=== PATIENT | male | born 1945 | race Caucasian/White ===

== ENCOUNTER → 2016-09-14 | Outpatient (CLI) | payer MEDICARE, BC ==
[~2016-09-14] MED LIST: ATOR40TA PO; DIGO250T86 PO; ERGO500017 PO; FURO20TA3 PO; INSU100I13 SC; LISI40TA PO; METF10002 PO; RIVA20TA PO; TEST75GE TD; TIOT4MIS3 INH; metoprolol PO; pioglitazone PO
[2016-09-14 12:37] LABS: ASPARTATE AMINO TRANSFERASE 11 U/L (15-37); BLOOD UREA NITROGEN 37 mg/dL (7-18)
[2016-09-15 14:07] LABS: THYROGLOBULIN AB <1.0 IU/mL (0.0-0.9)
== END | disposition home or self-care (01) ==
LOC: STAR 10:54
PROVIDERS: ATTEND Surgery
DX: Z01.818 Encounter for other preprocedural examination (principal); R94.31 Abnormal electrocardiogram [ECG] [EKG]
CPT/HCPCS: 36415; 71020; 80053; 84432; 85025; 86800; 93005

== ENCOUNTER 2016-09-26 06:05 | Observation (INO) | payer MEDICARE, BC ==
[~2016-09-26] VITALS: Ht 185.4 cm; Wt 127.2 kg
[~2016-09-26 06:05] MED LIST changes: +CEFAZOLIN 1,000 MG ONE; +DEXAMETHASONE 4 MG/ML, 1ML ONE; +ONDANSETRON 2MG/ML, 2ML ONE; +PROPOFOL 10 MG/ML, 20ML ONE; +SUCCINYLCHOLINE 20 MG/ML, 10ML ONE
[2016-09-26] MEDS ORDERED: LIDOCAINE 1%, 2ML ONE ×2 (06:33→06:35)
[2016-09-26] MEDS ORDERED: GABAPENTIN 300 MG CAPSULE ONE (06:35)
[2016-09-26] MEDS ORDERED: LACTATED RINGERS 1,000 ML IV SCH (06:39)
[2016-09-26] MEDS ORDERED: METO-93 PO (06:48)
[2016-09-26] MEDS ORDERED: PIOG30TA4 PO (06:48)
[2016-09-26 06:56] VITALS: BP 106/58
[2016-09-26] MEDS ORDERED: MIDAZOLAM 1 MG/ML, 2ML ONE (06:59)
[2016-09-26] MEDS: INSULIN REGULAR 100 UNITS/ML, 3ML VIAL SQ-INSULIN SCH ×4 (07:00→21:49)
[2016-09-26] MEDS ORDERED: ONDANSETRON 2MG/ML, 2ML IVPush PRN ×2 (07:00→08:30)
[2016-09-26] MEDS ORDERED: HYDROmorphone 1 MG/ML, 1ML IV PRN (07:00)
[2016-09-26] MEDS ORDERED: LIDOCAINE 1%, 2ML SQ PRN (07:00)
[2016-09-26] MEDS ORDERED: FENTANYL PF 250 MCG/5ML ONE ×2 (07:00→08:38)
[2016-09-26] MEDS ORDERED: OXYcodone/APAP 5/325MG TABLET PO PRN (07:00)
[2016-09-26] MEDS ORDERED: GABAPENTIN 300 MG CAPSULE PO SCH (07:00)
[2016-09-26] MEDS ORDERED: SUCCINYLCHOLINE 20 MG/ML, 10ML ONE (07:21)
[2016-09-26] MEDS ORDERED: PROPOFOL 10 MG/ML, 20ML ONE (07:21)
[2016-09-26] MEDS ORDERED: CEFAZOLIN 1,000 MG ONE (07:21)
[2016-09-26] MEDS ORDERED: DEXAMETHASONE 4 MG/ML, 1ML ONE (07:21)
[2016-09-26] MEDS ORDERED: ONDANSETRON 2MG/ML, 2ML ONE (07:21)
[2016-09-26] MEDS ORDERED: MIDAZOLAM 1 MG/ML, 2ML IV PRN (08:30)
[2016-09-26] MEDS ORDERED: OXYcodone 5 MG/5 ML ORAL.SOL UDC PO PRN (08:30)
[2016-09-26] MEDS ORDERED: hydrALAzine 20 MG/ML, 1ML IV PRN (08:30)
[2016-09-26] MEDS ORDERED: FENTANYL PF 100 MCG/2ML IV PRN (08:30)
[2016-09-26] MEDS ORDERED: METOPROLOL 1 MG/ML, 5ML IV PRN (08:30)
[2016-09-26] MEDS ORDERED: ALBUTEROL/IPRATROPIUM 2.5MG/0.5MG, 3 ML NPPB PRN (08:30)
[2016-09-26] MEDS ORDERED: PROMETHAZINE 25 MG/ML, 1ML IV PRN (08:30)
[2016-09-26] MEDS ORDERED: HYDROmorphone 1 MG/ML, 1ML ONE (09:05)
[2016-09-26] MEDS ORDERED: FENTANYL PF 100 MCG/2ML ONE (09:05)
[2016-09-26] MEDS: HYDROmorphone 1 MG/ML, 1ML IV PRN ×3 (09:50→10:05)
[2016-09-26] MEDS: TIOTROPIUM BR INH SCH (11:48)
[2016-09-26] MEDS: OLODATEROL HCL INH SCH (11:48)
[2016-09-26] MEDS: metFORMIN 500 MG TABLET PO SCH ×2 (11:49→17:06)
[2016-09-26] MEDS: FUROSEMIDE 20 MG TABLET PO SCH (11:49)
[2016-09-26] MEDS: PIOGLITAZONE 15 MG TABLET PO SCH (11:49)
[2016-09-26] MEDS: DIGOXIN 0.25 MG TABLET PO SCH (11:49)
[2016-09-26] MEDS: METOPROLOL SUCCINATE 50 MG TAB.ER.24H PO SCH (11:50)
[2016-09-26] MEDS: LISINOPRIL 20 MG TABLET PO SCH (11:50)
[2016-09-26 16:15] VITALS: BP 128/68
[2016-09-26] MEDS: POTASSIUM CHLORIDE 20 MEQ in LACTATED RINGERS 1,000 ML IV SCH ×2 (16:21→23:22)
[2016-09-26 20:19] VITALS: BP 128/75
[2016-09-26] MEDS ORDERED: ATORVASTATIN 40 MG TABLET PO SCH (21:00)
[2016-09-26] MEDS ORDERED: LEVO150T PO (23:03)
[2016-09-26] MEDS ORDERED: OXYC-302 PO (23:06)
[2016-09-27 00:14] VITALS: BP 126/70
[2016-09-27] MEDS: POTASSIUM CHLORIDE 20 MEQ in LACTATED RINGERS 1,000 ML IV SCH (07:10)
[2016-09-27] MEDS: INSULIN REGULAR 100 UNITS/ML, 3ML VIAL SQ-INSULIN SCH ×2 (08:20→12:04)
[2016-09-27] MEDS: metFORMIN 500 MG TABLET PO SCH (08:21)
[2016-09-27] MEDS: TIOTROPIUM BR INH SCH (09:00)
[2016-09-27] MEDS: OLODATEROL HCL INH SCH (09:00)
[2016-09-27 09:27] VITALS: BP 135/74
[2016-09-27] MEDS: DIGOXIN 0.25 MG TABLET PO SCH (09:39)
[2016-09-27] MEDS: PIOGLITAZONE 15 MG TABLET PO SCH (09:39)
[2016-09-27] MEDS: FUROSEMIDE 20 MG TABLET PO SCH (09:39)
[2016-09-27] MEDS: LISINOPRIL 20 MG TABLET PO SCH (09:40)
[2016-09-27] MEDS: METOPROLOL SUCCINATE 50 MG TAB.ER.24H PO SCH (09:40)
[2016-09-27 14:27] VITALS: BP 143/68
== END 2016-09-27 15:54 | disposition home or self-care (01) ==
LOC: OUT 06:05 → ORIP 07:00 → 4NOR 10:28 → DCLOUNGE 09-27 15:07
PROVIDERS: ADMIT Surgery; ATTEND Surgery
DX: E04.2 Nontoxic multinodular goiter (principal); E06.3 Autoimmune thyroiditis; I48.91 Unspecified atrial fibrillation; D68.318 Other hemorrhagic disorder due to intrinsic circulating anticoagulants, antibodies, or inhibitors; I25.10 Atherosclerotic heart disease of native coronary artery without angina pectoris; J44.9 Chronic obstructive pulmonary disease, unspecified; E66.9 Obesity, unspecified; E11.9 Type 2 diabetes mellitus without complications; I10 Essential (primary) hypertension; R09.02 Hypoxemia; G47.30 Sleep apnea, unspecified; Z95.0 Presence of cardiac pacemaker; Z90.49 Acquired absence of other specified parts of digestive tract
CPT/HCPCS: 36415; 60271; 82040; 82310; 82962; 88307; 96372; C1729; C1760; G0378; J0330; J0690; J1100; J1170; J1815; J2250; J2405; J2704; J3010; J3480; J3490; J7120

== ENCOUNTER → 2020-02-18 | Outpatient (CLI) | payer MEDICARE, BC ==
[~2020-02-18] MED LIST changes: -CEFAZOLIN 1,000 MG ONE; +CEFD300C37 PO; +DAPA1TAB5 PO; -DEXAMETHASONE 4 MG/ML, 1ML ONE; +DIGO125T85 PO; +DUTA0.5C PO; +FURO-92 PO; +GUAI600T31 PO; +INSU100I18 INJ; +INSU100V35 INJ; +LEVO150T PO; +LEVO175T2 PO; +METO-93 PO; -ONDANSETRON 2MG/ML, 2ML ONE; +OXYC-302 PO; +PIOG30TA68 PO; -PROPOFOL 10 MG/ML, 20ML ONE; +SEMA0.25 INJ; +SEMA1PEN INJ; -SUCCINYLCHOLINE 20 MG/ML, 10ML ONE; +TAMS-11 PO; +TIOT4MIS5 INH
[2020-02-18 13:24] LABS: BASOPHILS % (AUTO) 1 % (0-1); EOSINOPHILS % (AUTO) 3 % (1-7); LYMPHOCYTES % (AUTO) 17 % (22-44); MEAN CORPUSCULAR HEMOGLOBIN 29.8 pg (27.5-34.5); MEAN CORPUSCULAR HGB CONC 32.6 g/dL (33.2-36.2); MEAN PLATELET VOLUME 8.1 fL (7.4-10.4); MONOCYTES % (AUTO) 9 % (2-9); NEUTROPHILS % (AUTO) 71 % (42-75); PLATELET COUNT 322 x10^3/uL (130-400); RED BLOOD COUNT 5.36 x10^6/uL (4.38-5.82); RED CELL DISTRIBUTION WIDTH 16.3 % (9.4-14.8)
[2020-02-18 13:26] LABS: MD NO
[2020-02-18 13:31] LABS: INTERNATIONAL NORMALIZED RATIO 1.12 (0.93-1.1); PROTHROMBIN TIME 11.9 Seconds (9.6-11.5)
[2020-02-18 13:34] LABS: ALANINE AMINOTRANSFERASE 23 U/L (12-78); ALBUMIN 3.7 g/dL (3.4-5.0); ANION GAP 9 mmol/L (5-15); CALCIUM 9.2 mg/dL (8.5-10.1); CHLORIDE 100 mmol/L (98-107); CREATININE 1.25 mg/dL (0.7-1.3)
[2020-02-18 13:36] LABS: ALKALINE PHOSPHATASE 40 U/L (45-117); BILIRUBIN,TOTAL 0.5 mg/dL (0.2-1.0); MICROSCOPIC NOT IND; TOTAL PROTEIN 8.3 g/dL (6.4-8.2)
== END | disposition home or self-care (01) ==
LOC: STAR 11:44
PROVIDERS: ATTEND Urology
DX: Z01.818 Encounter for other preprocedural examination (principal); N40.1 Benign prostatic hyperplasia with lower urinary tract symptoms; I44.30 Unspecified atrioventricular block; I48.92 Unspecified atrial flutter; I45.10 Unspecified right bundle-branch block
CPT/HCPCS: 36415; 71046; 80053; 81003; 85025; 85610; 87086; 93005

== ENCOUNTER 2020-02-24 07:00 | Day surgery (SDC) | payer MEDICARE, BC ==
[~2020-02-24] VITALS: Ht 182.9 cm; Wt 107.0 kg
[2020-02-24 06:23] VITALS: BP 125/75
[~2020-02-24 07:00] MED LIST changes: +CHLORHEXIDINE 15 ML UDC MM ONE; +CHLORHEXIDINE 15 ML UDC ONE; +FENTANYL PF 100 MCG/2ML IV PRN; +FENTANYL PF 100 MCG/2ML ONE; +HYDROcodone/APAP 7.5-325MG/15ML UDC PO PRN; +HYDROmorphone 1 MG/ML, 1ML INJ IVPush PRN; +LACTATED RINGERS 1,000 ML IV SCH; +MEPERIDINE/PF 25MG/0.5ML IVPush PRN; +MIDAZOLAM 1 MG/ML, 2ML ONE; +OXYcodone 5 MG/5 ML ORAL.SOL UDC PO PRN; +PROMETHAZINE 25 MG/ML, 1ML IVPush PRN
[2020-02-24] MEDS ORDERED: ONDANSETRON 2MG/ML, 2ML ONE (07:29)
[2020-02-24] MEDS ORDERED: DEXAMETHASONE 4 MG/ML, 1ML ONE (07:29)
[2020-02-24] MEDS ORDERED: LIDOCAINE PF 2%, 5ML ONE (07:29)
[2020-02-24] MEDS ORDERED: CEFAZOLIN 1,000 MG ONE (07:29)
[2020-02-24] MEDS ORDERED: PROPOFOL 10 MG/ML, 20ML ONE (07:29)
[2020-02-24] MEDS ORDERED: DEXTROSE 50%, 50ML SYRINGE IVPush ONE (08:30)
[2020-02-24] MEDS ORDERED: HYDROcodone/APAP 5/325 TABLET ONE (10:34)
== END 2020-02-24 10:50 | disposition home or self-care (01) ==
LOC: OUT 07:00
PROVIDERS: ATTEND Urology
DX: N40.1 Benign prostatic hyperplasia with lower urinary tract symptoms (principal); N39.41 Urge incontinence; R35.0 Frequency of micturition; R35.1 Nocturia; E29.1 Testicular hypofunction; N43.3 Hydrocele, unspecified; K40.20 Bilateral inguinal hernia, without obstruction or gangrene, not specified as recurrent; I48.92 Unspecified atrial flutter; I10 Essential (primary) hypertension; E11.9 Type 2 diabetes mellitus without complications; J44.9 Chronic obstructive pulmonary disease, unspecified; G47.33 Obstructive sleep apnea (adult) (pediatric); Z20.828 Contact with and (suspected) exposure to other viral communicable diseases; Z79.01 Long term (current) use of anticoagulants; Z79.4 Long term (current) use of insulin; Z79.890 Hormone replacement therapy; Z79.899 Other long term (current) drug therapy; Z91.048 Other nonmedicinal substance allergy status; Z99.81 Dependence on supplemental oxygen
CPT/HCPCS: 52601; 82962; 87635; 88305; J0690; J1100; J2250; J2405; J2704; J3010; J7120

== ENCOUNTER 2020-02-24 22:28 | Emergency (ER) | payer MEDICARE, BC ==
[~2020-02-24] VITALS: Ht 182.9 cm; Wt 110.3 kg
[~2020-02-24 22:28] MED LIST changes: -CHLORHEXIDINE 15 ML UDC MM ONE; -CHLORHEXIDINE 15 ML UDC ONE; -FENTANYL PF 100 MCG/2ML IV PRN; -FENTANYL PF 100 MCG/2ML ONE; -HYDROcodone/APAP 7.5-325MG/15ML UDC PO PRN; -HYDROmorphone 1 MG/ML, 1ML INJ IVPush PRN; -LACTATED RINGERS 1,000 ML IV SCH; -MEPERIDINE/PF 25MG/0.5ML IVPush PRN; -MIDAZOLAM 1 MG/ML, 2ML ONE; -OXYcodone 5 MG/5 ML ORAL.SOL UDC PO PRN; -PROMETHAZINE 25 MG/ML, 1ML IVPush PRN
[2020-02-24 22:56] VITALS: BP 116/70
--- NOTE | 2020-02-24 22:56 | NUR ---
pt walked to room
--- NOTE | 2020-02-24 22:56 | NUR ---
pt calm and sitting in chair, refused to put gown on, stated "I'm just here for someone to look at my bag and tell me if it's too much blood", Pt's vital signs taken, remains calm, no pain stated. greene bag and greene catheter in place. bag is about 400ml full with blood tinged urine. pink in color
[2020-02-24 23:18] LABS: BASOPHILS % (AUTO) 0 % (0-1); EOSINOPHILS % (AUTO) 0 % (1-7); LYMPHOCYTES % (AUTO) 7 % (22-44); MEAN CORPUSCULAR HEMOGLOBIN 30.3 pg (27.5-34.5); MEAN CORPUSCULAR HGB CONC 33.3 g/dL (33.2-36.2); MEAN PLATELET VOLUME 8.2 fL (7.4-10.4); MONOCYTES % (AUTO) 8 % (2-9); NEUTROPHILS % (AUTO) 84 % (42-75); PLATELET COUNT 310 x10^3/uL (130-400); RED BLOOD COUNT 4.91 x10^6/uL (4.38-5.82); RED CELL DISTRIBUTION WIDTH 16.2 % (9.4-14.8)
[2020-02-24 23:23] LABS: MD NO
[2020-02-24 23:29] LABS: ALBUMIN 3.1 g/dL (3.4-5.0); ANION GAP 8 mmol/L (5-15); CALCIUM 8.3 mg/dL (8.5-10.1); CHLORIDE 100 mmol/L (98-107); CREATININE 1.58 mg/dL (0.7-1.3)
== END 2020-02-25 00:06 | disposition home or self-care (01) ==
LOC: ED 23:14
DX: R31.0 Gross hematuria (principal); N28.9 Disorder of kidney and ureter, unspecified; E11.65 Type 2 diabetes mellitus with hyperglycemia; E78.00 Pure hypercholesterolemia, unspecified; I10 Essential (primary) hypertension; Z95.0 Presence of cardiac pacemaker
CPT/HCPCS: 36415; 80048; 82040; 85025; 99283

== ENCOUNTER 2020-10-10 15:08 | Inpatient (IN) | payer MEDICARE, BC ==
[~2020-10-10] VITALS: Ht 185.4 cm; Wt 117.4 kg
[~2020-10-10 15:08] MED LIST changes: -LISI40TA PO; +LISI40TA9 PO; -OXYC-302 PO; +OXYC1TAB14 PO
--- NOTE | 2020-10-10 15:15 | NUR ---
RECEIVED REPORT FROM WAI CALIXTO
--- NOTE | 2020-10-10 15:19 | NUR ---
PATIENT BIB EMS WITH CHIEF C/O SEIZURE. PER EMS WOKE UP TO PATIENT HAVING A SEIZURE, REPORTED SEIZURE LASTED 3-5 MINUTES. PATIENT HAS NO HX OF SEIZURES. PATIENT GIVEN 1500 MG KEPPRA AT [facility] ED, NO OTHER SEIZURES NOTED. PER EMS PATIENT HAD EPISODE OF INCONTINENCE AT [facility], BRIEF PLACED ON PATIENT. PATIENT PLACED ON 2 LPM NC DUE TO O2 SATURATION IN THE MID TO HIGH 80'S. 20 GAUGE IV STARTED PRIOR TO ARRIVAL. PATIENT DROWSY UPON ASSESSMENT BUT A&OX4, PLACED ON 2 LPM NC SATURATION AT 94-95%, OTHER VSS, NADN, SEIZURE PRECAUTIONS IN PLACE, CALL LIGHT WITHIN REACH.
--- NOTE | 2020-10-10 15:25 | NUR ---
REPORT TO MARILY VILLEGAS FOR TRANSFER OF PATIENT CARE.
--- NOTE | 2020-10-10 16:02 | NUR ---
PT LAYING ON GURNEY SLEEPING COMFORTABLY, NAD/VSS, NO NEEDS AT THIS TIME, CALL LIGHT WITHIN REACH, SEIZ PREC REMAIN IN PLACE.
[2020-10-10 16:29] LABS: BASOPHILS % (AUTO) 0 % (0-1); EOSINOPHILS % (AUTO) 0 % (1-7); LYMPHOCYTES % (AUTO) 8 % (22-44); MEAN CORPUSCULAR HEMOGLOBIN 31.1 pg (27.5-34.5); MEAN CORPUSCULAR HGB CONC 33.1 g/dL (33.2-36.2); MEAN PLATELET VOLUME 8.4 fL (7.4-10.4); MONOCYTES % (AUTO) 8 % (2-9); NEUTROPHILS % (AUTO) 84 % (42-75); PLATELET COUNT 237 x10^3/uL (130-400); RED BLOOD COUNT 5.24 x10^6/uL (4.38-5.82); RED CELL DISTRIBUTION WIDTH 15.2 % (9.4-14.8)
[2020-10-10] MEDS ORDERED: ACETAMINOPHEN 325 MG TABLET PO PRN (16:30)
[2020-10-10] MEDS ORDERED: ONDANSETRON ODT 4 MG PO PRN (16:30)
[2020-10-10] MEDS ORDERED: LORazepam 2 MG/ML, 1ML IVPush PRN (16:30)
[2020-10-10] MEDS ORDERED: ONDANSETRON 2MG/ML, 2ML IVPush PRN (16:30)
[2020-10-10 16:40] LABS: ANION GAP 5 mmol/L (5-15); CALCIUM 8.6 mg/dL (8.5-10.1); CHLORIDE 107 mmol/L (98-107); CREATININE 0.91 mg/dL (0.7-1.3)
--- NOTE | 2020-10-10 17:04 | NUR ---
PT CONTINUES MOSTLY SLEEPING ON GURNEY, AWAKENS/RESPONDS APPROP TO STAFF, NAD, COMFORT MEASURES PROVIDED, CALL LIGHT WITHIN REACH, AT BS, SEIZ PREC REMAIN IN PLACE.
--- NOTE | 2020-10-10 17:38 | NUR ---
TP RN NOTE: REPORT CALLED TO RECEIVING MARILY GROSSMAN PT AWAITING TRANSPORT TO MEDICAL TELEMETRY.
[2020-10-10] MEDS ORDERED: CARVEDILOL 3.125 MG TABLET PO SCH (18:00)
--- NOTE | 2020-10-10 18:03 | NUR ---
PT MOSTLY SLEEPING ON GURNEY BUT AWAKENS/RESPONDS APPROP TO STAFF, NAD, NO NEEDS AT THIS TIME, CALL LIGHT WITHIN REACH, AT BS, SEIZ PREC REMAIN IN PLACE. AWAITING TRANSPORT TO FLOOR.
--- NOTE | 2020-10-10 19:00 | NUR ---
PT RESTING ON GURNEY WITH EYES CLOSED, AWAKENS/RESPONDS APPROP TO STAFF, NAD, NO NEEDS AT THIS TIME, CALL LIGHT WITHIN REACH, AT BS, SEIZ PREC REMAIN IN PLACE.
[2020-10-10 19:58] VITALS: BP 108/58
[2020-10-10] MEDS: DAPAGLIFLOZIN PO SCH (21:00)
[2020-10-10] MEDS: METFORMIN HCL PO SCH (21:00)
[2020-10-10] MEDS: INSULIN LISPRO 100 UNITS/ML, PEN SQ-INSULIN SCH (21:00)
[2020-10-10] MEDS: ATORVASTATIN 40 MG TABLET PO SCH (21:22)
[2020-10-10] MEDS: CARVEDILOL 3.125 MG TABLET PO SCH (21:22)
[2020-10-11 01:32] VITALS: BP 123/71
[2020-10-11 05:06] LABS: BASOPHILS % (AUTO) 1 % (0-1); EOSINOPHILS % (AUTO) 1 % (1-7); LYMPHOCYTES % (AUTO) 20 % (22-44); MEAN CORPUSCULAR HEMOGLOBIN 31.4 pg (27.5-34.5); MEAN CORPUSCULAR HGB CONC 33.8 g/dL (33.2-36.2); MEAN PLATELET VOLUME 8.4 fL (7.4-10.4); MONOCYTES % (AUTO) 11 % (2-9); NEUTROPHILS % (AUTO) 68 % (42-75); PLATELET COUNT 224 x10^3/uL (130-400); RED BLOOD COUNT 4.83 x10^6/uL (4.38-5.82); RED CELL DISTRIBUTION WIDTH 15.5 % (9.4-14.8)
[2020-10-11 05:11] LABS: ANION GAP 3 mmol/L (5-15); CALCIUM 8.4 mg/dL (8.5-10.1); CHLORIDE 109 mmol/L (98-107); CREATININE 0.91 mg/dL (0.7-1.3)
[2020-10-11] MEDS: LEVOTHYROXINE 175 MCG TABLET PO SCH (06:04)
[2020-10-11 06:53] VITALS: BP 126/80
[2020-10-11] MEDS: INSULIN LISPRO 100 UNITS/ML, PEN SQ-INSULIN SCH ×4 (07:00→20:23)
[2020-10-11] MEDS ORDERED: POTASSIUM CHLORIDE 20 MEQ TAB.ER.PRT PO ONE (08:00)
[2020-10-11] MEDS: DIGOXIN 0.125 MG TABLET PO SCH (09:50)
[2020-10-11] MEDS: RIVAROXABAN 20 MG TABLET PO SCH (09:50)
[2020-10-11] MEDS: TAMSULOSIN 0.4 MG CAP.ER.24H PO SCH (09:51)
[2020-10-11] MEDS: PIOGLITAZONE 15 MG TABLET PO SCH (09:51)
[2020-10-11] MEDS: CARVEDILOL 3.125 MG TABLET PO SCH ×2 (09:51→20:21)
[2020-10-11] MEDS: METFORMIN HCL PO SCH (11:00)
[2020-10-11] MEDS: TIOTROPIUM BROMIDE INH SCH (11:00)
[2020-10-11] MEDS: DAPAGLIFLOZIN PO SCH (11:00)
[2020-10-11] MEDS: DUTASTERIDE 0.5 MG CAPSULE PO SCH (12:15)
[2020-10-11 14:24] VITALS: BP 119/71
[2020-10-11 18:40] VITALS: BP 126/79
[2020-10-11] MEDS: ATORVASTATIN 40 MG TABLET PO SCH (20:21)
[2020-10-11] MEDS ORDERED: IPRATROPIUM 0.5 MG/2.5 ML INHA ONE (20:44)
[2020-10-11] MEDS ORDERED: METFORMIN HOMEMEDPO ONE (21:00)
[2020-10-11] MEDS ORDERED: DAPAGLIFLOZIN HOMEMEDPO ONE (21:00)
[2020-10-12 01:52] VITALS: BP 119/72
[2020-10-12 05:48] LABS: BASOPHILS % (AUTO) 1 % (0-1); EOSINOPHILS % (AUTO) 3 % (1-7); LYMPHOCYTES % (AUTO) 26 % (22-44); MEAN CORPUSCULAR HGB CONC 33.2 g/dL (33.2-36.2); MEAN PLATELET VOLUME 8.2 fL (7.4-10.4); MONOCYTES % (AUTO) 11 % (2-9); NEUTROPHILS % (AUTO) 61 % (42-75); PLATELET COUNT 212 x10^3/uL (130-400); RED BLOOD COUNT 4.99 x10^6/uL (4.38-5.82); RED CELL DISTRIBUTION WIDTH 15.5 % (9.4-14.8)
[2020-10-12 05:56] LABS: CALCIUM 8.8 mg/dL (8.5-10.1)
[2020-10-12 06:19] LABS: ANION GAP 5 mmol/L (5-15)
[2020-10-12 06:20] LABS: CHLORIDE 109 mmol/L (98-107)
[2020-10-12] MEDS: LEVOTHYROXINE 175 MCG TABLET PO SCH (06:21)
[2020-10-12 07:30] VITALS: BP 139/88
[2020-10-12] MEDS: INSULIN LISPRO 100 UNITS/ML, PEN SQ-INSULIN SCH ×4 (07:48→19:39)
[2020-10-12] MEDS: TIOTROPIUM BROMIDE INH SCH (08:26)
[2020-10-12] MEDS: PIOGLITAZONE 15 MG TABLET PO SCH (08:35)
[2020-10-12] MEDS: TAMSULOSIN 0.4 MG CAP.ER.24H PO SCH (08:35)
[2020-10-12] MEDS: DIGOXIN 0.125 MG TABLET PO SCH (08:35)
[2020-10-12] MEDS: RIVAROXABAN 20 MG TABLET PO SCH (08:36)
[2020-10-12] MEDS: CARVEDILOL 3.125 MG TABLET PO SCH ×2 (08:40→20:59)
[2020-10-12] MEDS: DUTASTERIDE 0.5 MG CAPSULE PO SCH (10:06)
[2020-10-12] MEDS: IPRATROPIUM 0.5 MG/2.5 ML INHA NPPB SCH ×3 (10:55→21:30)
[2020-10-12 12:40] VITALS: BP 128/82
[2020-10-12] MEDS ORDERED: INSU100I11 SQ-INSULIN (13:04)
[2020-10-12] MEDS ORDERED: CARV3.1212 PO (13:04)
[2020-10-12 19:20] VITALS: BP 118/71
[2020-10-12] MEDS: ATORVASTATIN 40 MG TABLET PO SCH (20:58)
[2020-10-13 01:46] VITALS: BP 112/66
[2020-10-13] MEDS: IPRATROPIUM 0.5 MG/2.5 ML INHA NPPB SCH ×2 (03:50→07:44)
[2020-10-13] MEDS: LEVOTHYROXINE 175 MCG TABLET PO SCH (06:04)
[2020-10-13 07:07] VITALS: BP 129/84
[2020-10-13] MEDS: INSULIN LISPRO 100 UNITS/ML, PEN SQ-INSULIN SCH ×2 (07:40→11:25)
[2020-10-13] MEDS: TIOTROPIUM BROMIDE INH SCH (08:47)
[2020-10-13] MEDS: PIOGLITAZONE 15 MG TABLET PO SCH (08:55)
[2020-10-13] MEDS: RIVAROXABAN 20 MG TABLET PO SCH (08:55)
[2020-10-13] MEDS: DUTASTERIDE 0.5 MG CAPSULE PO SCH (08:55)
[2020-10-13] MEDS: DIGOXIN 0.125 MG TABLET PO SCH (08:55)
[2020-10-13] MEDS: TAMSULOSIN 0.4 MG CAP.ER.24H PO SCH (08:55)
[2020-10-13] MEDS: CARVEDILOL 3.125 MG TABLET PO SCH (08:56)
[2020-10-13 12:33] VITALS: BP 132/78
[2020-10-13] MEDS ORDERED: SENNOSIDES 8.6 MG TABLET PO SCH (21:00)
[2020-10-14] MEDS ORDERED: ERGOCALCIFEROL 50,000 UNIT CAPSULE PO SCH (16:30)
== END 2020-10-13 13:00 | disposition home or self-care (01) | DRG 638 ==
LOC: ED 16:21 → EDIP 17:34 → 4EST 19:53 → DCLOUNGE 10-13 12:50
PROVIDERS: ADMIT Internal Medicine; ATTEND Internal Medicine
DX: E11.649 Type 2 diabetes mellitus with hypoglycemia without coma (principal); F11.20 Opioid dependence, uncomplicated; R56.9 Unspecified convulsions; E87.6 Hypokalemia; I48.91 Unspecified atrial fibrillation; E11.65 Type 2 diabetes mellitus with hyperglycemia; E66.9 Obesity, unspecified; Z68.34 Body mass index [BMI] 34.0-34.9, adult; E78.5 Hyperlipidemia, unspecified; E83.51 Hypocalcemia; G47.30 Sleep apnea, unspecified; M54.9 Dorsalgia, unspecified; G89.29 Other chronic pain; N40.0 Benign prostatic hyperplasia without lower urinary tract symptoms; Z79.01 Long term (current) use of anticoagulants; Z95.0 Presence of cardiac pacemaker; Z90.49 Acquired absence of other specified parts of digestive tract
CPT/HCPCS: 36415; 80048; 80162; 82330; 82962; 83036; 83735; 85025; 93005; 94640; 95819; 99285; G0378; J7644; J1815